=== PATIENT | female | born 2000 | race Caucasian/White ===

== ENCOUNTER 2020-04-01 04:45 | Emergency (ER) | payer BC ==
[~2020-04-01] VITALS: Ht 154.9 cm; Wt 87.1 kg
[2020-04-01 04:48] VITALS: BP 130/53
--- NOTE | 2020-04-01 04:53 | NUR ---
PT TAKEN TO BED 7
--- NOTE | 2020-04-01 04:57 | NUR ---
19 year old female presents to ED with c/o rt ear pain x 2 days. states no injury or trauma happened on site. denies any other discomfort. no other s/sx reported or observed. afebrile. awaiting MSE. pmhx: denies nka
[2020-04-01 04:58] VITALS: BP 130/53
--- NOTE | 2020-04-01 05:04 | NUR ---
Dr. Dias examining patient.
== END 2020-04-01 05:19 | disposition home or self-care (01) ==
LOC: MED 04:45
DX: H60.501 Unspecified acute noninfective otitis externa, right ear (principal); R03.0 Elevated blood-pressure reading, without diagnosis of hypertension
CPT/HCPCS: 99282

== ENCOUNTER 2021-04-25 09:01 | Emergency (ER) | payer BC ==
[~2021-04-25] VITALS: Ht 154.9 cm; Wt 90.7 kg
[2021-04-25 09:04] VITALS: BP 153/98
--- NOTE | 2021-04-25 09:10 | NUR ---
PATIENT AMBULATED TO BED 9
--- NOTE | 2021-04-25 09:20 | NUR ---
Dr. Varghese is evaluating patient at bedside.
--- NOTE | 2021-04-25 09:30 | NUR ---
20 y/o F BIB self from home c/o R ear pain x 1 day. Patient A&Ox4, ambulatory, states +hearing loss. No aggrevating factors leading up to pain; states at rest at home. Patient reports 7/, throbbing/cosntant, non-radiating that progressively worsen since. States Tylenol @ 8PM last night with relief. Denies fever, chills, N/V/D, dizziness, headache. VSS; respirations even/unlabored. Bed locked in lowest position, side rails x 1, call light in reach. PMH/Sx/Meds: Denies NKA
[2021-04-25] MEDS ORDERED: CIPR7.5S OT (09:38)
[2021-04-25] MEDS ORDERED: CARB15DR61 OT (09:38)
--- NOTE | 2021-04-25 09:59 | NUR ---
Patient discharged with v/s stable. Written and verbal after care instructions given and explained. Patient alert, oriented and verbalized understanding of instructions. Ambulatory with steady gait. All questions addressed prior to discharge. ID band removed. Patient advised to follow up with PMD. Rx of Carbamide Peroxide, Ciprofloxacin Hcl/Dexameth 0.1% given. Patient educated on indication of medication including possible reaction and side effects. Opportunity to ask questions provided and answered.
== END 2021-04-25 09:59 | disposition home or self-care (01) ==
LOC: MED 09:01
DX: H61.23 Impacted cerumen, bilateral (principal); H60.91 Unspecified otitis externa, right ear
CPT/HCPCS: 99283

== ENCOUNTER 2022-03-27 20:29 | Emergency (ER) | payer BC ==
[~2022-03-27] VITALS: Ht 154.9 cm; Wt 87.1 kg
[~2022-03-27 20:29] MED LIST: CARB15DR61 OT; CIPR7.5S OT
[2022-03-27 20:55] VITALS: BP 122/69
--- NOTE | 2022-03-27 20:58 | NUR ---
TO LOBBY A/W BED AMBULATORY
[2022-03-27] MEDS ORDERED: ONDANSETRON 4 MG ODT PO ONE (22:00)
--- NOTE | 2022-03-27 22:57 | NUR ---
Patient discharged with v/s stable. Written and verbal after care instructions given and explained. Patient verbalized understanding. Ambulatory with steady gait. All questions addressed prior to discharge. Advised to follow up with PMD.
[2022-03-27 22:58] VITALS: BP 100/56
== END 2022-03-27 22:57 | disposition home or self-care (01) ==
LOC: MED 20:29
DX: S93.402A Sprain of unspecified ligament of left ankle, initial encounter (principal); J02.9 Acute pharyngitis, unspecified; X58.XXXA Exposure to other specified factors, initial encounter; Y93.89 Activity, other specified; Y92.89 Other specified places as the place of occurrence of the external cause; Y99.8 Other external cause status
CPT/HCPCS: 73610; 99283; Q0092; Q0162

== ENCOUNTER 2024-03-13 17:54 | Emergency (ER) | payer BC ==
[~2024-03-13] VITALS: Ht 157.5 cm; Wt 91.2 kg
[2024-03-13 18:07] VITALS: BP 113/64; PULSE 78; RESP 20; TEMP 98.1; O2SAT 99
[2024-03-13] MEDS: IBUPROFEN 600 MG TAB PO ONE (20:22)
[2024-03-13] MEDS: ACETAMINOPHEN EXTRA STRENGTH 500 MG TAB PO ONE (20:23)
[2024-03-13 20:35] VITALS: BP 113/64; PULSE 78; RESP 20; TEMP 98.1; O2SAT 99
[2024-03-13] MEDS ORDERED: DOPPLER MC ONE (23:04)
== END 2024-03-13 20:35 | disposition home or self-care (01) ==
LOC: MED 17:54
DX: S09.90XA Unspecified injury of head, initial encounter (principal); M54.2 Cervicalgia; Z79.899 Other long term (current) drug therapy; W18.39XA Other fall on same level, initial encounter; Y93.21 Activity, ice skating; Y92.330 Ice skating rink (indoor) (outdoor) as the place of occurrence of the external cause; Y99.8 Other external cause status
CPT/HCPCS: 99283